=== PATIENT | female | born 1945 | race Caucasian/White ===

== ENCOUNTER 2016-09-30 11:07 | Inpatient (IN) | payer OTHER ==
[2016-09-26 12:29] LABS: BASOPHILS 0.5 %; BASOPHILS ABSOLUTE 0.04 10/3/uL (0.0-0.16); EOSINOPHILS ABSOLUTE 0.22 10/3/uL (0.0-0.53); HEMOGLOBIN 12.9 g/dL (12.0-16.0); IMMATURE GRANULOCYTES 0.1 %; IMMATURE GRANULOCYTES ABSOLUTE 0.01 10/3/uL (0.0-0.11); LYMPHOCYTES 22.4 %; LYMPHOCYTES ABSOLUTE 1.67 10/3/uL (0.67-4.30); MEAN CORPUS HGB CONC 34.9 g/dL (32.0-36.0); MEAN PLATELET VOLUME 8.5 fL (9.2-13.0); MONOCYTES 6.3 %; MONOCYTES ABSOLUTE 0.47 10/3/uL (0.21-1.20); NEUTROPHILS 67.7 %; NEUTROPHILS ABSOLUTE 5.04 10/3/uL (2.02-8.40); PLATELET COUNT 296 10/3/uL (150-400); RBC DISTRIBUTION WIDTH 12.6 % (12.0-16.0); RED CELL COUNT 4.16 10/6/uL (4.0-5.6); WHITE BLOOD CELLS 7.5 10/3/uL (4.5-10.5)
[2016-09-26 12:32] LABS: MANUAL DIFF NO %; MEAN CORPUSCULAR VOLUME 88.9 fL (80-100)
[2016-09-26 12:45] LABS: INTERNATIONAL NORMAL RATI 1.1 UNITS (-); PROTIME (NOT ORD) 13.9 SEC (12.0-14.5)
[2016-09-26 12:47] LABS: ASCORBIC ACID (UR NOT ORDER) NEG (NEG); BILIRUBIN, URINE NEGATIVE (NEG); KETONE, URINE NEGATIVE (NEG); LEUKOCYTE ESTERASE(NOT OR SMALL (NEG); WBC (NOT ORDERED) (RFLEX) 3 (0-5)
[2016-09-26 12:57] LABS: A/G RATIO 1.1 (0.7-1.9); ALBUMIN 3.9 G/DL (3.5-5.0); ALKALINE PHOSPHATASE 127 U/L (45-117); BUN (BLOOD UREA NITROGEN) 10 MG/DL (6-23); CALCIUM, SERUM 9.1 MG/DL (8.5-10.4); CHLORIDE, SERUM 96 MMOL/L (96-112); CO2 (CARBON DIOXIDE) 33 MMOL/L (24-34); CREATININE 0.59 MG/DL (0.55-1.02); GFR AFRICAN AMERICAN 106 ML/MIN (>=60); GFR NON AFRICAN AMERICAN 92 ML/MIN (>=60); GLOBULIN 3.4 G/DL (2.5-4.1); GLUCOSE, SERUM 77 MG/DL (60-99); POTASSIUM, SERUM 3.5 MMOL/L (3.5-5.3); SGOT(AST) 13 U/L (5-40); SGPT(ALT) 17 U/L (5-65); SODIUM, SERUM 136 MMOL/L (135-148); TOTAL BILIRUBIN 0.6 MG/DL (0-1.2); TOTAL PROTEIN 7.3 G/DL (6.0-8.5)
--- NOTE | ~2016-09-30 | DS ---
Discharge Summary [place] [id number] [facility] [place]. [address] NAME: SANCHEZ PARRA : 43 STATUS : DIS IN PAT#: [id number] AGE: 71 ADM/REG DATE : 09/30/16 MR#: [id number] REPORT SERV DATE: 10/09/16 DICTATED BY: DARIN KELLEY JR. DATE: 10/09/16 REPORT STATUS : Draft TRANSCRIBED BY: SUMAYA DATE: 10/09/16 Data Collection from hospitalization DISCHARGE DIAGNOSES: 1. Right-sided pleural effusion, status post bronchoscopy, right thoracoscopy with parietal pleural biopsy, talc pleurodesis, and intercostal nerve block. 2. Essential hypertension. 3. Watson esophagitis. 4. History of carotid artery stenosis. 5. External hemorrhoids. 6. Gastroesophageal reflux disease. 7. Osteoarthritis. 8. Restless legs syndrome. 9. Former smoker. CONSULTATIONS: None. PROCEDURES PERFORMED: Bronchoscopy, right thoracoscopy with parietal pleural biopsy, talc pleurodesis 7.5 g, and intercostal nerve block on 09/30/2016. 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 MEDICATIONS: Aspirin 81 mg at bedtime, Lipitor 20 mg at bedtime, hydrochlorothiazide 25 mg every morning, Toprol-XL 100 mg at bedtime, Prilosec 40 mg every morning, Percocet 5/325 one to two tablets every four to six hours as needed, potassium chloride SR 10 mEq daily, and Requip 0.5 mg one tablet four times a day. CONDITION AT DISCHARGE: Stable. DISPOSITION: The patient was discharged home on a regular diet and Ensure with meals and activities as instructed. She would follow up with me on 10/27/2016. She would follow up with her primary care physician as needed. HOSPITAL COURSE: This is a 71-year-old female who has a history of shortness of breath, this started approximately six weeks prior to this admission. She mainly noticed it intermittently with exertion when working in her yard. She was seen by her primary care physician and was placed on antibiotics for possible pneumonia. She continued to have difficulty and a second round of antibiotics was given. After further evaluation, a chest x ray showed right pleural effusion. This prompted a CT scan to be performed, which showed right pleural effusion with pleural thickening and possible masses. The patient had denied hemoptysis or pain. She complained about a fullness across her right flank and anterior abdomen. She has a greater than 50-year smoking history, but stopped in 2010. It was felt that she would need to undergo surgical intervention. She was admitted to the hospital at this time for further evaluation and treatment. Upon admission, she was taken to the operating room where she underwent the above-mentioned procedure. She tolerated this well, and there were no complications. On postop day #1, she Discharge Summary [place] [id number] [place]. [address] NAME: SANCHEZ PARRA : 43 STATUS : DIS IN PAT#: [id number] AGE: 71 ADM/REG DATE : 09/30/16 MR#: [id number] REPORT SERV DATE: 10/09/16 DICTATED BY: DARIN KELLEY JR. DATE: 10/09/16 REPORT STATUS : Draft TRANSCRIBED BY: SUMAYA DATE: 10/09/16 was doing well. She complained of some difficulty breathing overnight, which resolved. We were monitoring her chest tube output. We encouraged her to mobilize. Chest x-ray showed right apical pneumothorax, which was small. She had good pain control. Her dressings were clean, dry, and intact. On 10/02/2016, she remained afebrile. O2 saturation was 94% on 2 liters. She had adequate urine output. We encouraged her to ambulate and encouraged her to increase her oral intake. The epidural catheter remained in place. Discharge planning was performed. On 10/03/2016, the epidural catheter was removed and the tip was intact. She was transitioned to oral and IV medications. Her pain was controlled. She was tolerating oral intake. Discharge instructions were given. Due to her improved and stable condition, she was discharged home with the above-stated instructions. Information collected by: Penelope Edwards I submit the above information as my discharge summary. ZOEY/SUMAYA Darin Kelley Jr., M.D. / [id number] CC: Darin Kelley Jr., M.D. Adrianne Butler M.D.
--- NOTE | ~2016-09-30 | OP ---
Record Of Operation [facility] [address] [place]. [address] NAME: SANCHEZ PARRA : 43 STATUS : ADM IN [facility]#: [id number] AGE: 71 ADM/REG DATE : 09/30/16 MR#: [id number] REPORT SERV DATE: 09/30/16 DICTATED BY: DARIN KELLEY JR. DATE: 09/30/16 REPORT STATUS : Draft TRANSCRIBED BY: MODL DATE: 09/30/16 DATE OF PROCEDURE: 09/30/2016 NAME OF PROCEDURE: Bronchoscopy, right thoracoscopy with parietal pleural biopsy, talc pleurodesis 7.5 g, intercostal nerve block. SURGEON: Darin Kelley M.D. RESIDENT SURGEON: Juan Sauer MD. PEWTER FINISHER: Cristian Toledo. ANESTHESIA: General endotracheal. FINDINGS: The patient noted to have extensive parietal pleural involvement including visceral pleural involvement in the lung tissue with a nodular metastatic disease including involvement of the pericardium and diaphragm. There was reasonable re-expansion with the lung filling about 75% of the pleural cavity. I felt it was reasonable to still attempt a talc pleurodesis. Frozen section confirmed adenocarcinoma versus mesothelioma. Final pathology is pending. There were several liters of malignant effusion within the pleural space. There was no significant pericardial effusion identified although there was tumor studding along the pericardial surface. On bronchoscopy, there were no endobronchial lesions or contraindications to proceeding on with surgery. DETAILS OF OPERATION: After adequate general anesthesia, the patient was intubated. Bronchoscopy was performed noting no endobronchial lesions. No contraindication to resection. A left-sided double-lumen endotracheal tube was then placed. The patient was positioned in the left lateral decubitus position with right chest prepped and draped in routine sterile fashion. A small incision made overlying the lower intercostal space. Through a single incision site, the above findings were noted. The pleural effusion was evacuated. Extensive pleural studding along the parietal pleura, visceral pleura, diaphragm, and pericardium was noted. Several different biopsies of the parietal pleura were sent for frozen section demonstrating obvious malignancy. Abundant tumor cells were present. Final pathology could not be made. I felt this was adenocarcinoma versus mesothelioma. An intercostal block was then performed. About 7.5 g of talc was placed in chest cavity. A 32-Hungarian chest tube was placed. The lung was reinflated. The trocar site was closed with running Vicryl sutures. The skin was closed with running monofilament suture. A Dermabond dressing was applied. The procedure was terminated at this point. The patient tolerated the procedure well and taken back to recovery room in stable condition. EVON/SUMAYA Darin Kelley Jr., M.D. Record Of Operation [address] [address] NAME: SANCHEZ PARRA : 43 STATUS : ADM IN [facility]#: [id number] AGE: 71 ADM/REG DATE : 09/30/16 MR#: [id number] REPORT SERV DATE: 09/30/16 DICTATED BY: DARIN KELLEY JR. DATE: 09/30/16 REPORT STATUS : Draft TRANSCRIBED BY: SUMAYA DATE: 09/30/16 / [id number] CC: Tony Diehl Jr., M.D.
[~2016-09-30 11:07] MED LIST: ASAB PO; HYDROCHLOROT25 MG PO; KDUR10 PO; LIPITOR20 PO; PRILOSEC40 MG PO; REQUIP5 PO; TOPXL100 PO
[2016-09-30 17:03] LABS: BASOPHILS 0.5 %; BASOPHILS ABSOLUTE 0.03 10/3/uL (0.0-0.16); EOSINOPHILS 3.3 %; EOSINOPHILS ABSOLUTE 0.19 10/3/uL (0.0-0.53); HEMOGLOBIN 10.5 g/dL (12.0-16.0); IMMATURE GRANULOCYTES 0.2 %; IMMATURE GRANULOCYTES ABSOLUTE 0.01 10/3/uL (0.0-0.11); LYMPHOCYTES 27.8 %; LYMPHOCYTES ABSOLUTE 1.58 10/3/uL (0.67-4.30); MEAN CORPUSCULAR HEMOGLOB 29.2 pg (26.0-34.0); MEAN PLATELET VOLUME 8.5 fL (9.2-13.0); MONOCYTES 6.2 %; MONOCYTES ABSOLUTE 0.35 10/3/uL (0.21-1.20); NEUTROPHILS ABSOLUTE 3.53 10/3/uL (2.02-8.40); PLATELET COUNT 230 10/3/uL (150-400); RBC DISTRIBUTION WIDTH 12.8 % (12.0-16.0); RED CELL COUNT 3.59 10/6/uL (4.0-5.6); WHITE BLOOD CELLS 5.7 10/3/uL (4.5-10.5)
[2016-09-30 17:04] LABS: HEMATOCRIT 30.9 % (36.0-48.0); MANUAL DIFF NO %; MEAN CORPUSCULAR VOLUME 86.1 fL (80-100)
[2016-09-30 17:13] LABS: BUN (BLOOD UREA NITROGEN) 7 MG/DL (6-23); CALCIUM, SERUM 8.3 MG/DL (8.5-10.4); CHLORIDE, SERUM 102 MMOL/L (96-112); CO2 (CARBON DIOXIDE) 29 MMOL/L (24-34); CREATININE 0.43 MG/DL (0.55-1.02); GFR AFRICAN AMERICAN 118 ML/MIN (>=60); GFR NON AFRICAN AMERICAN 102 ML/MIN (>=60); GLUCOSE, SERUM 101 MG/DL (60-99); POTASSIUM, SERUM 3.2 MMOL/L (3.5-5.3); SODIUM, SERUM 139 MMOL/L (135-148)
[2016-10-01 06:39] LABS: BASOPHILS 0.1 %; BASOPHILS ABSOLUTE 0.01 10/3/uL (0.0-0.16); EOSINOPHILS 0 %; HEMATOCRIT 33.6 % (36.0-48.0); IMMATURE GRANULOCYTES 0.3 %; IMMATURE GRANULOCYTES ABSOLUTE 0.03 10/3/uL (0.0-0.11); LYMPHOCYTES 9.9 %; LYMPHOCYTES ABSOLUTE 1.19 10/3/uL (0.67-4.30); MEAN CORPUS HGB CONC 35.7 g/dL (32.0-36.0); MEAN CORPUSCULAR HEMOGLOB 31.3 pg (26.0-34.0); MEAN CORPUSCULAR VOLUME 87.7 fL (80-100); MEAN PLATELET VOLUME 8.3 fL (9.2-13.0); MONOCYTES ABSOLUTE 0.96 10/3/uL (0.21-1.20); NEUTROPHILS 81.7 %; NEUTROPHILS ABSOLUTE 9.78 10/3/uL (2.02-8.40); PLATELET COUNT 249 10/3/uL (150-400); RBC DISTRIBUTION WIDTH 12.6 % (12.0-16.0); RED CELL COUNT 3.83 10/6/uL (4.0-5.6)
[2016-10-01 06:41] LABS: MANUAL DIFF NO %
[2016-10-01 06:52] LABS: BUN (BLOOD UREA NITROGEN) 8 MG/DL (6-23); CALCIUM, SERUM 8.6 MG/DL (8.5-10.4); CHLORIDE, SERUM 97 MMOL/L (96-112); CO2 (CARBON DIOXIDE) 26 MMOL/L (24-34); GFR AFRICAN AMERICAN 106 ML/MIN (>=60); GFR NON AFRICAN AMERICAN 91 ML/MIN (>=60); POTASSIUM, SERUM 3.7 MMOL/L (3.5-5.3); SODIUM, SERUM 134 MMOL/L (135-148)
[2016-10-01 06:53] LABS: GLUCOSE, SERUM 136 MG/DL (60-99)
[2016-10-02 06:41] LABS: BUN (BLOOD UREA NITROGEN) 11 MG/DL (6-23); CALCIUM, SERUM 8.1 MG/DL (8.5-10.4); CHLORIDE, SERUM 96 MMOL/L (96-112); CO2 (CARBON DIOXIDE) 24 MMOL/L (24-34); CREATININE 0.71 MG/DL (0.55-1.02); GFR AFRICAN AMERICAN 99 ML/MIN (>=60); GFR NON AFRICAN AMERICAN 85 ML/MIN (>=60); POTASSIUM, SERUM 4.3 MMOL/L (3.5-5.3); SODIUM, SERUM 130 MMOL/L (135-148)
[2016-10-02 06:42] LABS: GLUCOSE, SERUM 99 MG/DL (60-99)
[2016-10-03] MEDS ORDERED: PCET PO (10:13)
== END 2016-10-03 11:47 | disposition home or self-care (01) | DRG 167 ==
LOC: SDC/OF 11:07 → 5NO 18:13
PROVIDERS: Thoracic Surgery (Cardiothoracic Vascular Surgery)
PROC: 3E0L3GC Introduction of Other Therapeutic Substance into Pleural Cavity, Percutaneous Approach (ICD-10-PCS; 2016-09-30)
PROC: 0BJ08ZZ Inspection of Tracheobronchial Tree, Via Natural or Artificial Opening Endoscopic (ICD-10-PCS; 2016-09-30)
PROC: 3E0T3BZ Introduction of Anesthetic Agent into Peripheral Nerves and Plexi, Percutaneous Approach (ICD-10-PCS; 2016-09-30)
PROC: 0BBN4ZX Excision of Right Pleura, Percutaneous Endoscopic Approach, Diagnostic (ICD-10-PCS; principal; 2016-09-30 13:00)
DX: C38.4 Malignant neoplasm of pleura (principal); J91.0 Malignant pleural effusion; J44.9 Chronic obstructive pulmonary disease, unspecified; Z87.891 Personal history of nicotine dependence; Z79.82 Long term (current) use of aspirin; K21.9 Gastro-esophageal reflux disease without esophagitis; I10 Essential (primary) hypertension
CPT/HCPCS: 36415; 71010; 71020; 80048; 80053; 81001; 82962; 83036; 85025; 85610; 86850; 86900; 86901; 87086; 87641; 88305; 88313; 88331; 88341; 88342; 88360; 93005; 94640; A9270-GY; J0690; J2250; J2370; J2405; J2710; J2795; J3010